=== PATIENT | female | born 1985 | race Asian ===

== ENCOUNTER → 2018-07-13 10:34 | Outpatient (CLI) | payer OTHER, SELFPAY | PROVIDERS: PCP Internal Medicine; Visit Provider Obstetrics & Gynecology Reproductive Endocrinology | DX: Z32.00 Encounter for pregnancy test, result unknown (principal) | CPT/HCPCS: 36415; 84702 ==

== ENCOUNTER → 2018-07-15 09:29 | Outpatient (CLI) | payer OTHER, SELFPAY | PROVIDERS: PCP Internal Medicine; Visit Provider Obstetrics & Gynecology Reproductive Endocrinology | DX: Z32.01 Encounter for pregnancy test, result positive (principal) | CPT/HCPCS: 36415; 84702 ==

== ENCOUNTER → 2018-08-17 10:35 | Outpatient (CLI) | payer OTHER, SELFPAY ==
[2018-08-17 11:06] LABS: Add Manual Diff / Slide Review NO; Basophils Percent Auto 0.5 % (0-2); Eosinophils Percent Auto 1.5 % (2-4); Hematocrit 39.8 % (36-46); Hemoglobin 13.5 g/dL (12.0-16.0); Mean Corpuscular Hemoglobin 29.8 PG (26-34); Mean Corpuscular Volume 87.5 fL (80-100); Monocytes Percent Auto 3.9 % (3-14); Neutrophils Absolute Auto 6400 /uL (3000-5900); Neutrophils Percent Auto 73.1 % (50-75); Platelet Count 331 X10^3/uL (150-400); Red Blood Cell Count 4.55 X10^6/uL (4.0-5.2); White Blood Cell Count 8.8 X10^3/uL (4.5-11.0)
[2018-08-17 11:16] LABS: Appearance Urine UA CLEAR; Bilirubin Urine UA NEGATIVE (NEGATIVE); Color Urine UA YELLOW; Glucose Urine UA NEGATIVE (Normal); Ketones Urine UA NEGATIVE (NEGATIVE); Leukocyte Esterase Urine UA NEGATIVE (NEGATIVE); Nitrite Urine UA POSITIVE (Negative); Occult Blood Urine UA NEGATIVE (Negative); Protein Urine UA NEGATIVE (Negative); Specific Gravity Urine UA 1.015 (1.000-1.035); Urobilinogen Urine UA 0.2 E.U./dL (0.2)
[2018-08-17 11:22] LABS: Bacteria Urine None Seen; RBC Urine None Seen (0-5/HPF); WBC Urine None Seen (0-5/HPF)
[2018-08-17 12:07] LABS: Hepatitis B Surface Antigen NEGATIVE s/c (NEGATIVE); Rubella Antibody IgG 53.5 IU/mL (>15)
[2018-08-17 12:24] LABS: HIV 1 and 2 Antibody NEGATIVE (NEGATIVE); Hep C Virus Ab w/Reflex Quant NEGATIVE s/c (NEGATIVE)
[2018-08-18 14:23] LABS: HSV 2 IGG AB 4.86 index (< 0.90); HSV1IGG < 0.90 index (< 0.90)
[2018-08-18 15:51] LABS: RPR Screen Nonreactive (Nonreactive)
== END ==
PROVIDERS: Family Provider Internal Medicine; PCP Internal Medicine; Visit Provider Obstetrics & Gynecology
DX: Z34.81 Encounter for supervision of other normal pregnancy, first trimester (principal); Z3A.01 Less than 8 weeks gestation of pregnancy
CPT/HCPCS: 36415; 80055; 81003; 81015; 86695; 86696; 86703; 86787; 86803; 86850; 86900; 86901; 87077; 87086; 87186

== ENCOUNTER → 2018-09-23 17:09 | Outpatient (CLI) | payer OTHER, SELFPAY | PROVIDERS: Family Provider Internal Medicine; PCP Internal Medicine; Visit Provider Obstetrics & Gynecology | DX: Z34.82 Encounter for supervision of other normal pregnancy, second trimester (principal) | CPT/HCPCS: 87077; 87086; 87186 ==

== ENCOUNTER → 2018-10-07 08:57 | Outpatient (CLI) | payer OTHER, SELFPAY ==
[2018-10-07 09:00] LABS: RBC Urine None Seen (0-5/HPF); WBC Urine None Seen (0-5/HPF)
[2018-10-07 11:07] LABS: Appearance Urine UA CLOUDY; Bilirubin Urine UA NEGATIVE (NEGATIVE); Color Urine UA YELLOW; Glucose Urine UA NEGATIVE (Normal); Ketones Urine UA TRACE (NEGATIVE); Leukocyte Esterase Urine UA NEGATIVE (NEGATIVE); Nitrite Urine UA NEGATIVE (Negative); Occult Blood Urine UA NEGATIVE (Negative); Protein Urine UA NEGATIVE (Negative); Specific Gravity Urine UA 1.015 (1.000-1.035); Urobilinogen Urine UA 0.2 E.U./dL (0.2)
[2018-10-07 11:34] LABS: Bacteria Urine Many (>30); Culture Indicated Urine Specimen Cultured; Squamous Epithelial Cell Urine 0-1 /HPF
== END ==
PROVIDERS: Family Provider Internal Medicine; PCP Internal Medicine; Visit Provider Obstetrics & Gynecology
DX: R39.9 Unspecified symptoms and signs involving the genitourinary system (principal)
CPT/HCPCS: 81001; 87077; 87086; 87186

== ENCOUNTER → 2018-10-16 09:08 | Outpatient (CLI) | payer OTHER, SELFPAY ==
[2018-10-16 09:12] LABS: Bacteria Urine None Seen; RBC Urine None Seen (0-5/HPF); WBC Urine None Seen (0-5/HPF)
[2018-10-16 10:15] LABS: Appearance Urine UA CLEAR; Bilirubin Urine UA NEGATIVE (NEGATIVE); Color Urine UA YELLOW; Glucose Urine UA NEGATIVE (Normal); Ketones Urine UA NEGATIVE (NEGATIVE); Leukocyte Esterase Urine UA NEGATIVE (NEGATIVE); Nitrite Urine UA NEGATIVE (Negative); Occult Blood Urine UA NEGATIVE (Negative); Protein Urine UA NEGATIVE (Negative); Specific Gravity Urine UA 1.015 (1.000-1.035); Urobilinogen Urine UA 0.2 E.U./dL (0.2)
[2018-10-16 10:23] LABS: Culture Indicated Urine Cult Not Indicated; Urine Comments Microscopic Normal
== END ==
PROVIDERS: PCP Internal Medicine; Visit Provider Obstetrics & Gynecology
DX: R30.0 Dysuria (principal); Z34.92 Encounter for supervision of normal pregnancy, unspecified, second trimester
CPT/HCPCS: 81001

== ENCOUNTER → 2018-10-22 17:31 | Outpatient (CLI) | payer OTHER, SELFPAY | PROVIDERS: Family Provider Internal Medicine; PCP Internal Medicine; Visit Provider Obstetrics & Gynecology | DX: Z34.82 Encounter for supervision of other normal pregnancy, second trimester (principal) | CPT/HCPCS: 87077; 87086; 87186 ==

== ENCOUNTER → 2018-11-13 07:05 | Outpatient (CLI) | payer OTHER, SELFPAY ==
--- NOTE | 2018-11-13 07:07 | DI.US.S_ITS ---
PROCEDURE: US OB >= 14 WEEKS FETUS INDICATIONS: ANATOMY OUTSIDE/PRIOR DATING DATA: Last menstrual period (LMP): Unknown. LMP-based estimated date of delivery (TEAGAN): Unknown. First dating scan (date and location): 08/19/18. Estimated date of delivery (TEAGAN) from first dating scan: 03/21/19. TECHNIQUE: Real-time scanning was performed of the fetus, with image documentation and biometric measurements. COMPARISON: [facility], , OB <= 14 WEEKS FETUS, 08/19/2018, 16:48. [facility], , OB >= 14 WEEKS FETUS, 10/22/2018, 16:06. FINDINGS: General: A single living intrauterine gestation is present. Presentation: Vertex. Placenta: Placental position is posterior, without previa. The inferior margin of the placenta is approximately 2.4 cm from the internal os. Amniotic fluid index: 14.1 cm, normal range is 5-24 cm. heart rate: 141 beats per minute. Maternal cervical canal: 3.5 cm long. Normal lower limit is 2.5 cm. biometrics: Biparietal diameter: 5.1 cm 21 weeks 2 days Head circumference: 19.4 cm 21 weeks 4 days Abdominal circumference: 16.9 cm 21 weeks 6 days Femur length: 3.6 cm 21 weeks 2 days Estimated gestational age from initial scan: 21 weeks 5 days Composite gestational age from present scan: 21 weeks 4 days Estimated weight and percentile: 437g 38% Measurement variability for biometric dating: +/- 7 days from 14 weeks to 15 weeks 6 days gestation, +/- 10 days from 16 weeks to 21 weeks 6 days gestation, +/- 2 weeks from 22 weeks to 27 weeks 6 days gestation, +/- 3 weeks for 28 weeks gestation or later. weight reference: 4500 g or EFW >90/95% is considered macrosomia or large for gestational age. EFW <10% is small for gestational age. EFW 5% or less is considered intra-uterine growth restriction. Anatomic survey: Neuro: Ventricles are non-dilated at less than 10 mm. Cisterna magna is normal at 3-11 mm. Cerebellum is normal in size and morphology. Nuchal skin fold: Normal at less than 6 mm between 14-21 weeks gestational age. Face: Nose and lips, facial profile are not well seen. Spine: No evidence for spina bifida. Heart: 4-chambered heart is present, with normal ventricular outflow tracts. Diaphragm: Diaphragm is intact. Stomach: Left-sided stomach is present. Kidneys: No hydronephrosis. Normal is less than 5 mm in 2nd trimester, less than 7 mm in 3rd trimester. Cord: 3-vessel cord has orthotopic insertion. Bladder: Normal in size. Extremities: All 4 extremities identified. IMPRESSION: 1. Single live intrauterine with ultrasound gestational age today of 21 weeks 4 days compared to 21 weeks 5 days from initial ultrasound. Ultrasound TEAGAN is unchanged at 03/21/19. 2. Facial profile is not well-visualized. Recommend followup as indicated. Dictated by: Sally James M.D. on 11/13/2018 at 11:10 Approved by: Sally James M.D. on 11/13/2018 at 11:13
== END ==
PROVIDERS: Family Provider Internal Medicine; PCP Internal Medicine; Visit Provider Obstetrics & Gynecology
DX: Z34.02 Encounter for supervision of normal first pregnancy, second trimester (principal); Z3A.21 21 weeks gestation of pregnancy
CPT/HCPCS: 76811

== ENCOUNTER 2018-11-25 12:53 | Outpatient (CLI) | payer OTHER, SELFPAY ==
--- NOTE | 2018-11-25 13:01 | DI.US.S_ITS ---
PROCEDURE: US OB TRANSVAGINAL INDICATIONS: CERVICAL LENGTH OUTSIDE/PRIOR DATING DATA: Last menstrual period (LMP): Not available. LMP-based estimated date of delivery (TEAGAN): Not available. First dating scan (date and location): 08/19/18 Estimated date of delivery (TEAGAN) from first dating scan: 03/21/[address] Muhammad. TECHNIQUE: Real-time scanning was performed of the fetus, with image documentation. Endovaginal scanning: Cervical length evaluation COMPARISON: [facility], , US OB <= 14 WEEKS FETUS, 08/19/2018, 16:48. FINDINGS: A single living intrauterine gestation is present. Presentation: Breech. Placenta: Placental position is posterior, without previa. Amniotic fluid index: 12.6 cm, normal range is 5-24 cm. heart rate: 125 beats per minute. Maternal cervical canal: 3.9 cm long. Normal lower limit is 2.5 cm. Estimated gestational age from initial scan: 23 weeks 3 days. IMPRESSION: 3.9 cm maternal cervical canal length. Breech presentation. The delivery is projected to be centered on 03/21/19, plus or -5 days, based on the first OB ultrasound performed by Dr. Muhammad. Dictated by: Derek Merlos M.D. on 11/25/2018 at 13:48 Approved by: Derek Merlos M.D. on 11/25/2018 at 13:59
== END 2018-11-25 14:25 | disposition home or self-care (01) ==
LOC: LABOR 13:18 → OB 11-27 11:02
PROVIDERS: Family Provider Internal Medicine; PCP Internal Medicine; Visit Provider Obstetrics & Gynecology
DX: O09.292 Supervision of pregnancy with other poor reproductive or obstetric history, second trimester (principal); Z3A.23 23 weeks gestation of pregnancy
CPT/HCPCS: 59025; 59050; 76817; G0378; G0379

== ENCOUNTER → 2018-11-27 13:20 | Outpatient (CLI) | payer OTHER, SELFPAY ==
[2018-11-27 14:15] LABS: Fetal Fibronectin Negative
== END ==
PROVIDERS: Family Provider Internal Medicine; PCP Internal Medicine; Visit Provider Obstetrics & Gynecology
DX: O47.02 False labor before 37 completed weeks of gestation, second trimester (principal)
CPT/HCPCS: 82731

== ENCOUNTER → 2018-12-18 11:21 | Outpatient (CLI) | payer OTHER, SELFPAY ==
[2018-12-18 13:34] LABS: GTT (PREG) 1 Hour PP 50gm Dose 112 mg/dL (76-139)
[2018-12-18 13:55] LABS: Hematocrit 36.5 % (36-46); Hemoglobin 12.3 g/dL (12.0-16.0)
== END ==
PROVIDERS: PCP Internal Medicine; Visit Provider Obstetrics & Gynecology
DX: Z34.82 Encounter for supervision of other normal pregnancy, second trimester (principal)
CPT/HCPCS: 36415; 82950; 85014; 85018

== ENCOUNTER → 2018-12-28 15:06 | Outpatient (CLI) | payer OTHER, SELFPAY ==
[2018-12-28 16:28] LABS: Fetal Fibronectin Negative
== END ==
PROVIDERS: PCP Internal Medicine; Visit Provider Obstetrics & Gynecology
DX: O47.9 False labor, unspecified (principal); Z3A.28 28 weeks gestation of pregnancy
CPT/HCPCS: 82731; 87077; 87086; 87186

== ENCOUNTER 2019-01-18 14:31 | Outpatient (CLI) | payer OTHER, SELFPAY | END 2019-01-18 15:30 | disposition home or self-care (01) | LOC: LABOR 14:56 → OB 01-19 14:18 | PROVIDERS: PCP Internal Medicine; Visit Provider Obstetrics & Gynecology | DX: Z34.03 Encounter for supervision of normal first pregnancy, third trimester (principal); Z3A.31 31 weeks gestation of pregnancy | CPT/HCPCS: 59025; G0378; G0379 ==

== ENCOUNTER 2019-01-25 11:00 | Outpatient (CLI) | payer OTHER, SELFPAY ==
--- NOTE | 2019-01-25 18:42 | PM.OBTRLD ---
Visit Information Visit Information Date of evaluation: 01/25/19 Primary OB Provider: Vi Muhammad On-call OB Provider: Vi Muhammad Reason for Evaluation: Yes non-stress test Comments/Additional reasons for admission: History of demise [facility] Medical History Herpes (Resolved ~2009) Surgical History Anesthesia (Resolved) History of tonsillectomy (Resolved 2003) Status post appendectomy (Resolved 1998) Social History Smoking Status: Never smoker Social History Smoking Status: Never smoker Evaluation Evaluation Baseline heart rate: 140 Variability: Moderate (11-25) monitor accelerations: Present monitor decelerations: Absent Category of Tracing: I Diagnosis, Plan/Disposition Final Diagnosis (1) 32 weeks gestation of : Current Visit: No Status: Acute Plan/Disposition Plan: Assessment: 33-year-old 2 para 1 at 32 weeks gestation with a history of a full-term intrauterine demise Reassuring, category 1 nonstress test Plan: Discharge to home kick counts Follow-up as scheduled for her routine OB visit OB Disposition: home
--- NOTE | 2019-01-25 18:45 | P.TNLD_ITS ---
Visit Information Visit Information Date of evaluation: 01/25/19 Primary OB Provider: Vi Muhammad On-call OB Provider: Vi Muhammad Reason for Evaluation: Yes non-stress test Comments/Additional reasons for admission: History of demise [facility] Medical History Herpes (Resolved ~2009) Surgical History Anesthesia (Resolved) History of tonsillectomy (Resolved 2003) Status post appendectomy (Resolved 1998) Social History Smoking Status: Never smoker Social History Smoking Status: Never smoker Evaluation Evaluation Baseline heart rate: 140 Variability: Moderate (11-25) monitor accelerations: Present monitor decelerations: Absent Category of Tracing: I Diagnosis, Plan/Disposition Final Diagnosis (1) 32 weeks gestation of : Current Visit: No Status: Acute Plan/Disposition Plan: Assessment: 33-year-old 2 para 1 at 32 weeks gestation with a history of a full-term intrauterine demise Reassuring, category 1 nonstress test Plan: Discharge to home kick counts Follow-up as scheduled for her routine OB visit OB Disposition: home
== END 2019-01-25 11:50 | disposition home or self-care (01) ==
LOC: LABOR 11:29 → OB 01-26 11:16
PROVIDERS: PCP Internal Medicine; Visit Provider Obstetrics & Gynecology
DX: O09.293 Supervision of pregnancy with other poor reproductive or obstetric history, third trimester (principal); Z3A.32 32 weeks gestation of pregnancy
CPT/HCPCS: 59025; G0378; G0379

== ENCOUNTER 2019-02-01 13:56 | Outpatient (CLI) | payer OTHER, SELFPAY ==
--- NOTE | 2019-02-01 14:29 | PM.OBTRLD ---
Visit Information Visit Information Date of evaluation: 02/01/19 Primary OB Provider: Vi Muhammad On-call OB Provider: Juliette Hope Reason for Evaluation: Yes non-stress test non-stress test reason: other (H/o demise) Vital Signs Vital Signs: BP 118/80 Heart rate 80 PFSH Medical History (Updated 02/01/19 @ 14:32 by Juliette Hope, DO) Herpes (Resolved ~2009) Surgical History (Updated 08/14/18 @ 15:37 by Alida Phillip) Anesthesia (Resolved) History of tonsillectomy (Resolved 2003) Status post appendectomy (Resolved 1998) Social History Smoking Status: Never smoker Social History Smoking Status: Never smoker Evaluation Evaluation Baseline heart rate: 130 Variability: Moderate (11-25) monitor accelerations: Present monitor decelerations: Absent Diagnosis, Plan/Disposition Final Diagnosis (1) Prior with demise: Current Visit: No Status: Chronic (2) 33 weeks gestation of : Current Visit: Yes Status: Acute Plan/Disposition Plan: 33-year-old at 33 weeks gestation with a history of a full-term intrauterine demise. Scheduled NST reassuring. Follow up as scheduled with Dr. Muhammad. OB Disposition: home
--- NOTE | 2019-02-01 14:34 | P.TNLD_ITS ---
Visit Information Visit Information Date of evaluation: 02/01/19 Primary OB Provider: Vi Muhammad On-call OB Provider: Juliette Hope Reason for Evaluation: Yes non-stress test non-stress test reason: other (H/o demise) Vital Signs Vital Signs: BP 118/80 Heart rate 80 PFSH Medical History (Updated 02/01/19 @ 14:32 by Juliette Hope, DO) Herpes (Resolved ~2009) Surgical History (Updated 08/14/18 @ 15:37 by Alida Phillip) Anesthesia (Resolved) History of tonsillectomy (Resolved 2003) Status post appendectomy (Resolved 1998) Social History Smoking Status: Never smoker Social History Smoking Status: Never smoker Evaluation Evaluation Baseline heart rate: 130 Variability: Moderate (11-25) monitor accelerations: Present monitor decelerations: Absent Diagnosis, Plan/Disposition Final Diagnosis (1) Prior with demise: Current Visit: No Status: Chronic (2) 33 weeks gestation of : Current Visit: Yes Status: Acute Plan/Disposition Plan: 33-year-old at 33 weeks gestation with a history of a full-term int rauterine demise. Scheduled NST reassuring. Follow up as scheduled with Dr. Muhammad. OB Disposition: home
== END 2019-02-01 14:39 | disposition home or self-care (01) ==
LOC: LABOR 14:18 → OB 02-02 14:11
PROVIDERS: PCP Internal Medicine; Visit Provider Family Medicine
DX: O09.293 Supervision of pregnancy with other poor reproductive or obstetric history, third trimester (principal); Z3A.33 33 weeks gestation of pregnancy
CPT/HCPCS: 59025; G0378; G0379

== ENCOUNTER 2019-02-09 10:52 | Outpatient (CLI) | payer OTHER, SELFPAY ==
--- NOTE | 2019-02-09 18:17 | P.TNLD_ITS ---
Visit Information Visit Information Date of evaluation: 02/09/19 Primary OB Provider: Vi Muhammad Reason for Evaluation: Yes non-stress test non-stress test reason: other (Unexplained demise) [facility] Medical History (Updated 02/09/19 @ 18:17 by Vi Muhammad MD) Herpes (Resolved ~2009) Surgical History (Updated 08/14/18 @ 15:37 by Alida Phillip) Anesthesia (Resolved) History of tonsillectomy (Resolved 2003) Status post appendectomy (Resolved 1998) Social History Smoking Status: Never smoker Social History Smoking Status: Never smoker Evaluation Evaluation Baseline heart rate: 125 Variability: Moderate (11-25) monitor accelerations: Present monitor decelerations: Absent Category of Tracing: I Diagnosis, Plan/Disposition Final Diagnosis (1) 34 weeks gestation of : Current Visit: No Status: Acute (2) Prior with demise: Current Visit: No Status: Chronic Plan/Disposition Plan: Discharge to home [facility] Follow up 1 week OB Disposition: home
== END 2019-02-09 11:47 | disposition home or self-care (01) ==
LOC: LABOR 11:42 → OB 02-10 13:54
PROVIDERS: PCP Internal Medicine; Visit Provider Obstetrics & Gynecology
DX: O31.20X0 Continuing pregnancy after intrauterine death of one fetus or more, unspecified trimester, not applicable or unspecified (principal); Z3A.34 34 weeks gestation of pregnancy
CPT/HCPCS: 59025; G0378; G0379

== ENCOUNTER 2019-02-15 11:57 | Outpatient (CLI) | payer OTHER, SELFPAY | END 2019-02-15 12:57 | disposition home or self-care (01) | LOC: LABOR 13:09 → OB 03-05 13:05 | PROVIDERS: PCP Internal Medicine; Visit Provider Obstetrics & Gynecology | DX: O47.9 False labor, unspecified (principal); Z3A.36 36 weeks gestation of pregnancy | CPT/HCPCS: 59025; G0378; G0379 ==

== ENCOUNTER 2019-02-16 10:31 | Observation (INO) | payer OTHER, SELFPAY ==
[2019-02-16] MEDS: NIFEdipine 10 MG CAPSULE PO ×4 (11:51→13:04)
== END 2019-02-16 13:55 | disposition home or self-care (01) ==
LOC: LABOR 10:32
PROVIDERS: Admitting Provider Obstetrics & Gynecology; PCP Internal Medicine; Visit Provider Obstetrics & Gynecology
DX: O36.8130 Decreased fetal movements, third trimester, not applicable or unspecified (principal); Z3A.36 36 weeks gestation of pregnancy
CPT/HCPCS: 59025; 59050; G0378; G0379

== ENCOUNTER 2019-02-23 11:38 | Observation (INO) | payer OTHER, SELFPAY ==
--- NOTE | 2019-02-23 18:21 | PM.OBTRLD ---
Visit Information Visit Information Date of evaluation: 02/23/19 Primary OB Provider: Vi Muhammad Reason for Evaluation: Yes non-stress test non-stress test reason: other (history of IUFD) [facility] Medical History (Updated 02/23/19 @ 18:24 by Vi Muhammad MD) Herpes (Resolved ~2009) Surgical History (Updated 08/14/18 @ 15:37 by Alida Phillip) Anesthesia (Resolved) History of tonsillectomy (Resolved 2003) Status post appendectomy (Resolved 1998) Social History Smoking Status: Never smoker Social History Smoking Status: Never smoker Evaluation Evaluation Baseline heart rate: 140 Variability: Moderate (11-25) monitor accelerations: Present monitor decelerations: Absent Uterine Contraction Intensity: Mild Category of Tracing: I Diagnosis, Plan/Disposition Final Diagnosis (1) 37 weeks gestation of : Current Visit: Yes Status: Acute (2) Prior with demise: Current Visit: Yes Status: Acute Plan/Disposition Plan: Assessment: 33-year-old 2 para 1000 at 37-,1/7 weeks gestation with a history of a previous intrauterine demise Category 1 nonstress test Plan: Discharged home kick counts Follow-up 1 week OB Disposition: home
--- NOTE | 2019-02-23 18:25 | P.TNLD_ITS ---
Visit Information Visit Information Date of evaluation: 02/23/19 Primary OB Provider: Vi Muhammad Reason for Evaluation: Yes non-stress test non-stress test reason: other (history of IUFD) [facility] Medical History (Updated 02/23/19 @ 18:24 by Vi Muhammad MD) Herpes (Resolved ~2009) Surgical History (Updated 08/14/18 @ 15:37 by Alida Phillip) Anesthesia (Resolved) History of tonsillectomy (Resolved 2003) Status post appendectomy (Resolved 1998) Social History Smoking Status: Never smoker Social History Smoking Status: Never smoker Evaluation Evaluation Baseline heart rate: 140 Variability: Moderate (11-25) monitor accelerations: Present monitor decelerations: Absent Uterine Contraction Intensity: Mild Category of Tracing: I Diagnosis, Plan/Disposition Final Diagnosis (1) 37 weeks gestation of : Current Visit: Yes Status: Acute (2) Prior with demise: Current Visit: Yes Status: Acute Plan/Disposition Plan: Assessment: 33-year-old 2 para 1000 at 37-,1/7 weeks gestation with a history of a previous intrauterine demise Category 1 nonstress test Plan: Discharged home kick counts Follow-up 1 week OB Disposition: home
--- NOTE | 2019-02-23 18:26 | PM.OBTRLD ---
Visit Information Visit Information Date of evaluation: 02/23/19 Primary OB Provider: Vi Muhammad Reason for Evaluation: Yes pre-term labor [facility] Medical History (Updated 02/23/19 @ 18:30 by Vi Muhammad MD) Herpes (Resolved ~2009) Surgical History (Updated 08/14/18 @ 15:37 by Alida Phillip) Anesthesia (Resolved) History of tonsillectomy (Resolved 2003) Status post appendectomy (Resolved 1998) Social History Smoking Status: Never smoker Social History Smoking Status: Never smoker Evaluation Evaluation Baseline heart rate: 120 Variability: Moderate (11-25) monitor accelerations: Present monitor decelerations: Variable Contraction Frequency (minutes): 8 Uterine Contraction Intensity: Mild Category of Tracing: I Cervical dilation (cm): 1 Cervical effacement (%): 75 station: -1 Diagnosis, Plan/Disposition Final Diagnosis (1) 36 weeks gestation of : Current Visit: Yes Status: Acute (2) contractions: Current Visit: Yes Status: Acute Plan/Disposition Plan: Assessment: 33-year-old 2 para 1000 at 36 weeks gestation with contractions Plan: Discharged home Nifedipine 30 mg XL b.i.d. Nifedipine 10 mg immediate release as necessary x2 Follow-up in 1 week Signs and symptoms of labor review OB Disposition: home
== END 2019-02-23 12:05 | disposition home or self-care (01) ==
PROVIDERS: Admitting Provider Obstetrics & Gynecology; PCP Internal Medicine; Visit Provider Obstetrics & Gynecology
DX: O09.299 Supervision of pregnancy with other poor reproductive or obstetric history, unspecified trimester (principal); Z3A.37 37 weeks gestation of pregnancy; O47.9 False labor, unspecified
CPT/HCPCS: 59025; G0378; G0379

== ENCOUNTER → 2019-02-23 13:50 | Outpatient (CLI) | payer OTHER, SELFPAY ==
[2019-02-24 11:26] LABS: Strep Grp B PCR NEG for Grp B Strep
== END ==
PROVIDERS: PCP Internal Medicine; Visit Provider Obstetrics & Gynecology
DX: Z34.03 Encounter for supervision of normal first pregnancy, third trimester (principal)
CPT/HCPCS: 87653

== ENCOUNTER 2019-02-23 14:42 | Outpatient (CLI) | payer OTHER, SELFPAY ==
[2019-02-23] MEDS: NIFEdipine 10 MG CAPSULE PO ×4 (15:00→16:00)
== END 2019-02-23 16:20 | disposition home or self-care (01) ==
LOC: LABOR 15:59 → OB 02-25 10:49
PROVIDERS: PCP Internal Medicine; Visit Provider Obstetrics & Gynecology
DX: O09.299 Supervision of pregnancy with other poor reproductive or obstetric history, unspecified trimester (principal); O47.03 False labor before 37 completed weeks of gestation, third trimester; Z3A.37 37 weeks gestation of pregnancy
CPT/HCPCS: 59025; 59050; 87653; G0378; G0379

== ENCOUNTER 2019-03-02 10:01 | Outpatient (CLI) | payer OTHER, SELFPAY | END 2019-03-02 10:51 | disposition home or self-care (01) | LOC: LABOR 10:09 → OB 03-03 12:52 | PROVIDERS: PCP Internal Medicine; Visit Provider Obstetrics & Gynecology | DX: Z34.83 Encounter for supervision of other normal pregnancy, third trimester (principal); Z3A.38 38 weeks gestation of pregnancy | CPT/HCPCS: 59025; G0378; G0379 ==

== ENCOUNTER 2019-03-09 07:57 | Outpatient (CLI) | payer OTHER, SELFPAY ==
--- NOTE | 2019-03-09 08:52 | P.TNLD_ITS ---
[facility] Medical History (Updated 03/09/19 @ 08:51 by Vi Muhammad MD) Herpes (Resolved ~2009) Surgical History (Updated 08/14/18 @ 15:37 by Alida Phillip) Anesthesia (Resolved) History of tonsillectomy (Resolved 2003) Status post appendectomy (Resolved 1998) Social History Smoking Status: Never smoker Social History Smoking Status: Never smoker Evaluation Evaluation Baseline heart rate: 120 Variability: Moderate (11-25) monitor accelerations: Present monitor decelerations: Absent Contraction Frequency (minutes): 8 Uterine Contraction Intensity: Mild Category of Tracing: I Diagnosis, Plan/Disposition Final Diagnosis (1) 38 weeks gestation of : Current Visit: Yes Status: Acute (2) Prior with demise: Current Visit: Yes Status: Acute Plan/Disposition Plan: Assessment: at 38 weeks with history of demise at term Category 1 tracing Plan: F/U 1 week repeat NST [facility] OB Disposition: home
--- NOTE | 2019-03-11 15:00 | PM.OBTRLD ---
Visit Information Visit Information Date of evaluation: 03/09/19 Primary OB Provider: Vi Muhammad Reason for Evaluation: Yes non-stress test non-stress test reason: other (h/o demise) [facility] Medical History (Updated 03/09/19 @ 08:51 by Vi Muhammad MD) Herpes (Resolved ~2009) Surgical History (Updated 08/14/18 @ 15:37 by Alida Phillip) Anesthesia (Resolved) History of tonsillectomy (Resolved 2003) Status post appendectomy (Resolved 1998) Social History Smoking Status: Never smoker Social History Smoking Status: Never smoker Evaluation Evaluation Baseline heart rate: 120 Variability: Moderate (11-25) monitor accelerations: Present monitor decelerations: Absent Contraction Frequency (minutes): 8 Uterine Contraction Intensity: Mild Category of Tracing: I Diagnosis, Plan/Disposition Final Diagnosis (1) 38 weeks gestation of : Current Visit: No Status: Acute (2) Prior with demise: Current Visit: No Status: Acute Plan/Disposition Plan: D/C to home [facility] F/U as scheduled OB Disposition: home
--- NOTE | 2019-03-11 15:03 | P.TNLD_ITS ---
Visit Information Visit Information Date of evaluation: 03/09/19 Primary OB Provider: Vi Muhammad Reason for Evaluation: Yes non-stress test non-stress test reason: other (h/o demise) [facility] Medical History (Updated 03/09/19 @ 08:51 by Vi Muhammad MD) Herpes (Resolved ~2009) Surgical History (Updated 08/14/18 @ 15:37 by Alida Phillip) Anesthesia (Resolved) History of tonsillectomy (Resolved 2003) Status post appendectomy (Resolved 1998) Social History Smoking Status: Never smoker Social History Smoking Status: Never smoker Evaluation Evaluation Baseline heart rate: 120 Variability: Moderate (11-25) monitor accelerations: Present monitor decelerations: Absent Contraction Frequency (minutes): 8 Uterine Contraction Intensity: Mild Category of Tracing: I Diagnosis, Plan/Disposition Final Diagnosis (1) 38 weeks gestation of : Current Visit: No Status: Acute (2) Prior with demise: Current Visit: No Status: Acute Plan/Disposition Plan: D/C to home [facility] F/U as scheduled OB Disposition: home
== END 2019-03-09 08:50 | disposition home or self-care (01) ==
LOC: LABOR 10:19 → OB 16:39
PROVIDERS: PCP Internal Medicine; Visit Provider Obstetrics & Gynecology
DX: O09.299 Supervision of pregnancy with other poor reproductive or obstetric history, unspecified trimester (principal); Z3A.38 38 weeks gestation of pregnancy
CPT/HCPCS: 59025; G0378; G0379

== ENCOUNTER 2019-03-13 02:50 | Inpatient (IN) | payer OTHER, SELFPAY ==
[2019-03-13 03:28] LABS: Add Manual Diff / Slide Review NO; Basophils Absolute Auto 100 /uL (0-100); Basophils Percent Auto 0.5 % (0-2); Eosinophils Absolute Auto 100 /uL (0-450); Eosinophils Percent Auto 0.7 % (2-4); Hematocrit 37.7 % (36-46); Hemoglobin 12.6 g/dL (12.0-16.0); Lymphocytes Absolute Auto 2200 /uL (1100-4500); Mean Corpuscular HGB Conc 33.5 % (30-36); Mean Corpuscular Hemoglobin 30.1 PG (26-34); Mean Corpuscular Volume 89.8 fL (80-100); Monocytes Absolute Auto 600 /uL (0-900); Monocytes Percent Auto 4.6 % (3-14); Neutrophils Absolute Auto 9400 /uL (1500-7000); Neutrophils Percent Auto 76.2 % (50-75); Platelet Count 232 X10^3/uL (150-400); Red Cell Distribution Width 13.9 % (11.6-14.8); White Blood Cell Count 12.3 X10^3/uL (4.5-11.0)
--- NOTE | 2019-03-13 03:31 | PM.OBHP.1 ---
OB HPI Date/Time Date of admission: 03/13/19 Date Patient Seen: 03/13/19 Time Patient Seen: 03:31 History of Present Condition Chief complaint: evaluation of labor : 2 Para: 1 Estimated Date of Delivery: 03/22/19 Estimated Gestational Age (weeks): 38 Narrative: Darby Monte is a 33 year old female admitted in active labor History of Present care: good care, initiated at week # (9), number of visits (10) and pounds weight gain (28) Dating criteria: LMP confirmed by 1st trimester US Ultrasounds: normal mid trimester US Obstetrical complications: none Medical complications: none Preadmission Labs Blood type: A (+) positive -: Antibody screen: negative, GBS status: negative, HBsAG: negative, HIV: negative, HSV 2: positive and RPR/VDLR: negative -: Chlamydia screen: not detected and Gonorrhea screen: not detected -: Rubella: immune and Varicella: immune HCAB: negative Quad screen: Normal 1 hr GTT: 112 Prior (ies) History: 09/2008 39 week stillborn vaginal delivery Evaluation Evaluation Baseline heart rate: 120 Variability: Moderate (11-25) monitor accelerations: Present monitor decelerations: Absent Contraction Frequency (minutes): 3 Uterine Contraction Intensity: Strong/Firm Category of Tracing: I Cervical dilation (cm): 8 Cervical effacement (%): 100 Laboratory results: Laboratory Tests 03/13/19 03:15 WBC 12.3 H RBC 4.20 Hgb 12.6 Hct 37.7 MCV 89.8 MCH 30.1 MCHC 33.5 RDW 13.9 Plt Count 232 Neut % (Auto) 76.2 H Lymph % (Auto) 18.[address] [place] % (Auto) 4.6 Eos % (Auto) 0.7 L Baso % (Auto) 0.5 Neut # (Auto) 9400 H Lymph # (Auto) 2200 [place] # (Auto) 600 Eos # (Auto) 100 Baso # (Auto) 100 PFSH Medical History (Updated 03/09/19 @ 08:51 by Vi Muhammad MD) Herpes (Resolved ~2009) Surgical History (Updated 08/14/18 @ 15:37 by Alida Phillip) Anesthesia (Resolved) History of tonsillectomy (Resolved 2003) Status post appendectomy (Resolved 1998) Social History Smoking Status: Never smoker Social History Smoking Status: Never smoker Meds Home Medications Medication Instructions Recorded Confirmed Type valacyclovir 500 mg PO BID #60 tab 10/22/17 04/13/18 Rx Allergies Allergy/AdvReac Type Severity Reaction Status Date / Time No Known Drug Allergies Allergy Verified 08/17/18 10:35 Review of Systems Review of Systems Patient denies signs or symptoms of preeclampsia. No signs of herpes. No leakage of fluid. Irregular contractions for the last several days. Good movement. All systems reviewed & are unremarkable except as noted in HPI and below Exam Vital Signs (past 8 hours): Blood pressure 127/87, pulse of 83, Narrative Exam Narrative: HEENT exam within normal limits. Lungs are clear to auscultation and percussion. Heart is regular rate and rhythm no S3-S4 or murmurs. Abdomen is gravid. Extremities without edema and nontender Objective Labs Result Diagrams: 03/13/19 03:15 Labs: Laboratory Results - last 24 hr 03/13/19 03:15 WBC 12.3 H RBC 4.20 Hgb 12.6 Hct 37.7 MCV 89.8 MCH 30.1 MCHC 33.5 RDW 13.9 Plt Count 232 Neut % (Auto) 76.2 H Lymph % (Auto) 18.[address] [place] % (Auto) 4.6 Eos % (Auto) 0.7 L Baso % (Auto) 0.5 Neut # (Auto) 9400 H Lymph # (Auto) 2200 [place] # (Auto) 600 Eos # (Auto) 100 Baso # (Auto) 100 Assessment and Plan Assessment and Plan Assessment and Plan narrative: 38 week gestation in active labor. Anticipate vaginal delivery. Patient is requesting epidural. Time Spent with Patient Total time spent with greater than 50% in coordination of care (as documented) at patient's floor/unit and/or counseling patient:: less than 15 minutes
--- NOTE | 2019-03-13 08:52 | PM.OBPRVD ---
Delivery date: 03/13/19 Intrapartal events: None Cervical ripening method: none Induction method: none Delivery monitor: external FHT and external uterine Route of delivery: L&D Laceration Description: None Estimated blood loss (mL): 250 Anesthesia type: Epidural Narrative: Patient arrived on Labor and delivery in active labor. She received an epidural for pain control. heart tones were category 1 to category 2 throughout labor. She delivered spontaneously, over an intact perineum. The viable male infant was placed on the maternal abdomen. After the cord stopped pulsating the cord was clamped, cut, and cord bloods obtained. The placenta delivered spontaneously, intact, with 3 vessels. There were no cervical, vaginal, or perineal tears. Both infant and mother did well . Baby 1: gender: Male Presentation: vertex position: Right Occiput Anterior Placenta delivery description: Spontaneous cord vessel description: 3 Vessels score (1 min): 8 score (5 min): 9 Plan for aftercare: Routine care
[2019-03-13] MEDS: miSOPROStol 200 MCG TABLET 800 MCG PR (10:10)
--- NOTE | 2019-03-13 10:24 | P.PNOB_ITS ---
Subjective - OB Narrative: Called to patient's room after a sycopal episode while trying to ambulate to the bathroom. Patient was awake and answering questions but stated she was very tired. Nursing reported heavier bleeding than expected since delivery without clots (two full pads since delivery). No lacerations or complications with delivery. Exam Vital Signs (past 8 hours): BP 108/6 HR 77 Narrative Exam Narrative: General: Awake, alert and appropriate Abd: Fundus firm 1 cm below umbilicus : No vaginal or perineal lacerations Ext: No edema Objective Labs Result Diagrams: 03/13/19 03:15 Labs: Laboratory Results - last 24 hr 03/13/19 03/13/19 03:15 03:15 WBC 12.3 H RBC 4.20 Hgb 12.6 Hct 37.7 MCV 89.8 MCH 30.1 MCHC 33.5 RDW 13.9 Plt Count 232 Neut % (Auto) 76.2 H Lymph % (Auto) 18.0 L [place] % (Auto) 4.6 Eos % (Auto) 0.7 L Baso % (Auto) 0.5 Neut # (Auto) 9400 H Lymph # (Auto) 2200 [place] # (Auto) 600 Eos # (Auto) 100 Baso # (Auto) 100 Blood Type A Positive Antibody Screen Negative Assessment & Plan Plan Comments: 33 year old [id number] 1.5 hours after uncomplicated . Patient was not bleeding heavily on exam however has gone through two pads since delivery with a syncopal episode upon ambulation. Vital signs stable. Rectal misoprostol given. No further heavy bleeding. Will monitor closely. Time Spent With Patient Total time spent is greater than 50% in coordination of care (as documented) at patient's floor/unit and/or counseling patient: less than 15 minutes
[2019-03-13 11:20] VITALS: BP 127/87
[2019-03-13] MEDS: IBUPROFEN 600 MG TABLET PO ×2 (11:54→21:24)
[2019-03-13] MEDS: LANOLIN OINT 7 GM 1 APPLIC TOP (22:07)
[2019-03-13] MEDS: DERMOPLAST SPRAY 20% 60 ML 1 SPRAY TOP (22:16)
[2019-03-14] MEDS: IBUPROFEN 600 MG TABLET PO ×2 (04:13→10:24)
[2019-03-14 05:32] LABS: Hematocrit 26.6 % (36-46); Hemoglobin 8.8 g/dL (12.0-16.0)
[2019-03-14] MEDS: LANOLIN OINT 7 GM 1 APPLIC TOP (10:25)
[2019-03-14 10:36] VITALS: BP 127/87; PULSE 77; RESP 16; TEMP 36.7
--- NOTE | 2019-03-14 13:05 | P.DS_ITS ---
Discharge Providers Date of admission: 03/13/19 02:50 Discharge Date: 03/14/19 Primary care physician: JOSE Lee Consults: 03/13/19 03:23 Consult to Anesthesiology Urgent Comment: Consulting Provider: Anesthesiologist Reason for consultation: epidural Has provider been notified: No 03/13/19 10:51 Consult to Social Service Coordinator Routine Comment: Discharge provider: Breanne King MD Summary Date Patient Seen: 03/14/19 Time Patient Seen: 13:05 Procedures: Epidural catheter, vaginal delivery Hospital Course: Patient arrived on Labor and delivery in active labor. She received an epidural catheter for pain control. She had a spontaneous vaginal delivery. She is breast-feeding without difficulty. She is urinating and ambulatory. She denies any signs or symptoms of preeclampsia. Peripartum Data Delivery Method: Natural Vaginal Laceration description: None Procedures: Epidural catheter, vaginal delivery complications: none [place] 1: Gender: Male Disposition of : home Discharge Diagnosis (1) Vaginal delivery: Status: Acute (2) Acute blood loss anemia: Status: Acute Time Spent with Patient Total time spent providing and/or coordinating discharge services: Objective Labs Result Diagrams: 03/14/19 05:00 Labs: Laboratory Results - last 24 hr 03/14/19 05:00 Hgb 8.8 L Hct 26.6 L Exam Vital Signs (past 8 hours): -blood pressure 119/79, pulse 71, temperature 97.9? 03/14/19 10:36 Temperature 98.0 F Pulse Rate 77 Respiratory Rate 16 Blood Pressure 127/87 Narrative Exam Narrative: Patient's abdomen is soft, nontender. Uterus is firm, at U, nontender. mild lochia. Extremities without edema and nontender. Patient's blood type is A positive and she is rubella immune. Discharge Plan Discharge Plan Patient Disposition: Home Discharge Med Rec/Prescriptions Prescriptions: New bisacodyl 5 mg Tablet,Delayed Release (Dr/Ec) 10 mg PO DAILY PRN (Reason: Constipation) Qty: 20 RF: 0 ibuprofen 600 mg Tablet 600 mg PO Q6HR PRN (Reason: Pain, Mild (1-3)) Qty: 30 RF: 0 ferrous gluconate 324 mg (38 mg iron) Tablet 324 mg PO BID Qty: 60 RF: 0 Discontinued valacyclovir 500 MG tablet 500 mg PO BID Qty: 60 RF: 0 Follow up/Referrals: Breanne King MD [Physician] - (please call Dr. Overton office on Friday morning for a 6 week check-up. Please schedule a appt as well. [phone]) Vi Muhammad MD [Physician] - 6 Weeks ( exam) Annette Landeros ARNP [Primary Care Provider] - Provider Discharge Instructions Diet: Regular Activity: nothing in vagina for 6 weeks Skin/Wound/Dressing Care Report to your healthcare provider any signs of infection, such as:: chills, fever Visit Report/Discharge Packet Stand Alone Forms: Discharge: Care Discharge Data Primary Care Provider: Annette Landeros Attending Provider: Breanne Kign Admit Date/Time: 03/13/19 02:50
== END 2019-03-14 14:12 | disposition home or self-care (01) | DRG 806 ==
PROVIDERS: Admitting Provider Specialist; PCP Internal Medicine; Visit Provider Specialist
DX: O80 Encounter for full-term uncomplicated delivery (principal); D62 Acute posthemorrhagic anemia; Z37.0 Single live birth; Z3A.38 38 weeks gestation of pregnancy; R55 Syncope and collapse
CPT/HCPCS: 01967; 36415; 59050; 59400; 59409; 85014; 85018; 85025; 86850; 86900; 86901; G0379; S0191

== ENCOUNTER 2020-10-08 15:41 | Emergency (ER) | payer OTHER, SELFPAY ==
[2020-10-08] VITALS (8 sets, daily range): BP systolic 114–129; BP diastolic 64–75; PULSE 65–75; RESP 16; TEMP 37.1; O2SAT 99–100; BMI 19.8
--- NOTE | 2020-10-08 16:32 | ED_ITS ---
HPI - General Adult General Chief complaint: Dizziness Stated complaint: body camps all over, hands went numb Time Seen by Provider: 10/08/20 16:08 Source: patient and family () Mode of arrival: Ambulatory Limitations: no limitations History of Present Illness HPI narrative: This is a 35-year-old female comes to the emergency department with a complaint of cramping all over her body patient states that she had some mild cramping and tingling and then had significant cramping throughout her whole body. She states that her hands were curled up as well as her arms legs and she could not completely straighten them. She did feel nauseated. She still has some mild abdominal discomfort. Patient states she also had 1 or 2 episodes of diarrhea. She states that this lasted for about 15 or 20 minutes and then resolved. She has not had any fevers, cough cold or congestion recently. She denies any chest pain or shortness of breath. She denies any loss of bowel or bladder control. No recent urinary symptoms. She did have mastitis a couple weeks ago and finished her antibiotics about a week ago. She does not recall the name of the antibiotic but states it was 3 times daily and improved her symptoms. She denies any medical problems. She denies similar symptoms in the past. She has a 1-year-old child which she is currently . She takes a and a breast feeding supplement from [facility]. No tobacco, alcohol or illicit. Related Data Previous Rx's Medication Instructions Recorded bisacodyl 10 mg PO DAILY PRN #20 tab 03/14/19 Allergies Allergy/AdvReac Type Severity Reaction Status Date / Time No Known Drug Allergies Allergy Verified 04/28/19 10:42 Review of Systems Review of Systems ROS Unobtainable: All systems reviewed & are unremarkable except as noted in HPI and below Patient History Medical History Herpes (~2009) Surgical History Anesthesia History of tonsillectomy (2003) Status post appendectomy (1998) Social History Smoking Status: Never smoker Smoking Status: Never smoker alcohol intake frequency: 0-2 drinks per day Substance Use Type: does not use Exam Narrative Exam Narrative: GEN: well nourished, well appearing female, alert and oriented x 3, patient appears to be in mild distress. HEENT: Atraumatic, pupils are equal round reactive to light, extraocular movements are intact, nares are clear, TMs are clear with no fluid, there is no conjunctival pallor. Throat is clear without any exudates, erythema, tonsillar enlargement or uvular deviation HEART: Regular rate and rhythm without murmur, clicks, rubs. LUNGS:Lungs clear to auscultation, no wheezes, rales, crackles, chest moves symmetrically ABD:bowel sounds normal, soft, non-tender, no guarding, rebound, rigidity, no masses noted, no hepatosplenomegaly MSCL: Non-tender, no muscle atrophy, muscles strength 5/5 upper and lower extremities, full range of motion, normal gait NEURO:CN 2-12 intact, sensation normal, patient is slightly hyperreflexic in the upper extremities, 2/4 on the lower extremities bilaterally. No clonus. Patient did not have any carpopedal spasm with blood pressure check. Initial Vital Signs Initial Vital Signs: Vital Signs Temperature 98.7 F 10/08/20 16:05 Pulse Rate 75 10/08/20 16:05 Respiratory Rate 16 10/08/20 16:05 Blood Pressure 116/75 10/08/20 16:05 Pulse Oximetry 99 10/08/20 16:05 Scores GCS Hillister coma scale eye opening: Spontaneous Yolie coma scale verbal response: Orientated Hillister coma scale motor response: Obey commands Yolie coma scale total score: 15 Course Orders Ordered: ED Orders 10/08/20 16:45 Complete Blood Count AUTO DIFF Stat Comprehensive Metabolic Panel Stat Magnesium Stat Procalcitonin Stat Discontinued Medications Sodium Chloride (Normal Saline 0.9%) 1,000 mls @ 1,000 mls/hr IV BOLUS ONE Stop: 10/08/20 17:30 Last Admin: 10/08/20 16:42 Dose: 1,000 mls/hr Documented by: NADIR Vital Signs Vital signs: Vital Signs - 8 hr 10/08/20 16:05 10/08/20 16:07 10/08/20 16:16 Temperature 98.7 F Pulse Rate 75 73 72 Respiratory Rate 16 Blood Pressure 116/75 116/75 Pulse Oximetry 99 100 99 10/08/20 16:30 10/08/20 17:00 10/08/20 17:30 Temperature Pulse Rate 69 69 65 Respiratory Rate Blood Pressure Pulse Oximetry 100 100 100 10/08/20 17:51 10/08/20 18:00 Temperature Pulse Rate 75 70 Respiratory Rate Blood Pressure 129/75 114/64 Pulse Oximetry 99 99 Medical Decision Making Lab Data Lab results reviewed: Yes I reviewed the patient's lab results. Result diagrams: 10/08/20 16:45 10/08/20 16:45 Labs: Lab Results 10/08/20 10/08/20 10/08/20 Range/Units 16:45 16:45 16:45 WBC 8.6 (4.5-11.0) X10^3/uL RBC 4.41 (4.0-5.2) X10^6/uL Hgb 13.3 (12.0-16.0) g/dL Hct 40.0 (36-46) % MCV 90.5 (80-100) fL MCH 30.2 (26-34) PG MCHC 33.3 (30-36) % RDW 12.8 (11.6-14.8) % Plt Count 315 (150-400) X10^3/uL Neut % (Auto) 74.4 (50-75) % Lymph % (Auto) 20.8 L (25-40) % [place] % (Auto) 3.3 (3-14) % Eos % (Auto) 0.9 L (2-4) % Baso % (Auto) 0.6 (0-2) % Neut # (Auto) 6400 (9455-9640) /uL Lymph # (Auto) 1800 (4355-3506) /uL [place] # (Auto) 300 (0-900) /uL Eos # (Auto) 100 (0-450) /uL Baso # (Auto) 0 (0-100) /uL Sodium 136 L (137-145) mmol/L Potassium 3.5 (3.4-5.1) mmol/L Chloride 101 (98-107) mmol/L Carbon Dioxide 29 (22-32) mmol/L BUN 20 H (7-17) mg/dL Creatinine 0.64 (0.52-1.04) mg/dL Estimated GFR > 60.0 (>60) mL/min BUN/Creatinine Ratio 31.3 H (6-22) Glucose 134 H (70-100) mg/dL Calcium 9.5 (8.4-10.2) mg/dL Magnesium 2.3 (1.6-2.3) mg/dL Total Bilirubin 0.4 (0.2-1.3) mg/dL AST 25 (14-36) IU/L ALT 16 (<35) IU/L Alkaline Phosphatase 44 (38-126) U/L Total Protein 8.2 (6.3-8.2) g/dL Albumin 4.7 (3.5-5.0) g/dL Globulin 3.5 (1.7-4.1) g/dL Albumin/Globulin Ratio 1.3 (1.0-2.8) Procalcitonin < 0.05 (<0.5) ng/mL ECG Data Attestation: I personally reviewed and interpreted this ECG as follows: Prior ECG tracings: not available for review Interpretation: Sinus rhythm with sinus arrhythmia, rate of 75, IL 134, QRS is 84 and QTC of 433. Nonspecific change. MDM Narrative Medical decision making narrative: Patient comes in with complaint of cramping and tingling throughout the whole body. Nonspecific EKG changes, patient has very mild electrolyte, glucose of 134. Patient has no major abnormalities. Plan for observation at home and to continue with home hydration. Patient had a small amount of stool in her urinanalysis test was deferred. Discharge Plan Departure Patient Disposition: Home Clinical Impression: Cramps, extremity Activity Restrictions/Additional Instructions: Follow up with your physician in the next 2-3 days for recheck. Continue to drink fluids regularly. Return for fever greater than 100.4F, increased or worsening cramping, difficulty with movement, new weakness, numbness or loss of bowel or bladder control, persistent vomiting, black or bloody stools or any other new or concerning symptoms. Prescriptions: No Action bisacodyl 5 mg Tablet,Delayed Release (Dr/Ec) 10 mg PO DAILY PRN (Reason: Constipation) Qty: 20 RF: 0 Referrals: Annette Landeros ARNP [Primary Care Provider] -
[2020-10-08] MEDS: SODIUM CHLORIDE 0.9% 1,000 ML 1000 ML IV (16:42)
[2020-10-08 16:52] LABS: Add Manual Diff / Slide Review NO; Basophils Absolute Auto 0 /uL (0-100); Basophils Percent Auto 0.6 % (0-2); Eosinophils Absolute Auto 100 /uL (0-450); Eosinophils Percent Auto 0.9 % (2-4); Hemoglobin 13.3 g/dL (12.0-16.0); Lymphocytes Absolute Auto 1800 /uL (1100-4500); Lymphocytes Percent Auto 20.8 % (25-40); Mean Corpuscular HGB Conc 33.3 % (30-36); Mean Corpuscular Hemoglobin 30.2 PG (26-34); Mean Corpuscular Volume 90.5 fL (80-100); Monocytes Absolute Auto 300 /uL (0-900); Monocytes Percent Auto 3.3 % (3-14); Neutrophils Absolute Auto 6400 /uL (1500-7000); Neutrophils Percent Auto 74.4 % (50-75); Platelet Count 315 X10^3/uL (150-400); Red Blood Cell Count 4.41 X10^6/uL (4.0-5.2); Red Cell Distribution Width 12.8 % (11.6-14.8); White Blood Cell Count 8.6 X10^3/uL (4.5-11.0)
[2020-10-08 17:06] LABS: Alanine Aminotransferase 16 IU/L (<35); Albumin 4.7 g/dL (3.5-5.0); Albumin Globulin Ratio 1.3 (1.0-2.8); Alkaline Phosphatase 44 U/L (38-126); Aspartate Aminotransferase 25 IU/L (14-36); BUN Creatinine Ratio 31.3 (6-22); Bilirubin Total 0.4 mg/dL (0.2-1.3); Blood Urea Nitrogen 20 mg/dL (7-17); Calcium 9.5 mg/dL (8.4-10.2); Carbon Dioxide 29 mmol/L (22-32); Chloride 101 mmol/L (98-107); Estimated Glomerular Filt Rate > 60.0 mL/min (>60); Globulin 3.5 g/dL (1.7-4.1); Glucose 134 mg/dL (70-100); HEMOLYSIS 18 (0-50); Magnesium 2.3 mg/dL (1.6-2.3); Potassium 3.5 mmol/L (3.4-5.1); Sodium 136 mmol/L (137-145); Total Protein 8.2 g/dL (6.3-8.2)
[2020-10-08 17:47] LABS: Procalcitonin < 0.05 ng/mL (<0.5)
== END 2020-10-08 18:12 | disposition home or self-care (01) ==
PROVIDERS: Emergency Provider Emergency Medicine; PCP Internal Medicine
DX: R25.2 Cramp and spasm (principal); R42 Dizziness and giddiness; R19.7 Diarrhea, unspecified; R10.9 Unspecified abdominal pain
CPT/HCPCS: 36415; 80053; 83735; 84145; 85025; 93005; 96360; 99283; 99284

== ENCOUNTER → 2022-05-03 09:42 | Outpatient (CLI) | payer OTHER, SELFPAY ==
[2022-05-03 10:31] LABS: Add Manual Diff / Slide Review NO; Basophils Absolute Auto 0 /uL (0-100); Basophils Percent Auto 0.4 % (0-2); Eosinophils Absolute Auto 100 /uL (0-450); Eosinophils Percent Auto 1.1 % (2-4); Hematocrit 36.8 % (36-46); Hemoglobin 12.8 g/dL (12.0-16.0); Lymphocytes Absolute Auto 1700 /uL (1100-4500); Lymphocytes Percent Auto 21.5 % (25-40); Mean Corpuscular HGB Conc 34.8 % (30-36); Mean Corpuscular Hemoglobin 30.4 PG (26-34); Mean Corpuscular Volume 87.4 fL (80-100); Monocytes Absolute Auto 300 /uL (0-900); Monocytes Percent Auto 3.7 % (3-14); Neutrophils Absolute Auto 5800 /uL (1500-7000); Neutrophils Percent Auto 73.3 % (50-75); Platelet Count 336 X10^3/uL (150-400); Red Blood Cell Count 4.21 X10^6/uL (4.0-5.2); Red Cell Distribution Width 12.8 % (11.6-14.8)
[2022-05-03 11:25] LABS: Hepatitis B Surface Antigen NEGATIVE s/c (NEGATIVE)
[2022-05-03 11:42] LABS: HIV 1 & 2 Ab/Ag 4th Gen Combo NEGATIVE (NEGATIVE); Hep C Virus Ab w/Reflex Quant NEGATIVE s/c (NEGATIVE)
[2022-05-03 11:57] LABS: Rubella Antibody IgG 52.7 IU/mL (>15)
[2022-05-04 07:37] LABS: RPR Screen Non Reactive (Non Reactive)
[2022-05-04 09:08] LABS: Varicella IgG Antibody 1365 index (Immune >165)
== END ==
PROVIDERS: PCP Internal Medicine; Referring Provider Obstetrics & Gynecology; Visit Provider Obstetrics & Gynecology
DX: Z34.81 Encounter for supervision of other normal pregnancy, first trimester (principal)
CPT/HCPCS: 36415; 80055; 86787; 86803; 86850; 86900; 86901; 87389

== ENCOUNTER → 2022-06-04 08:14 | Outpatient (CLI) | payer OTHER, SELFPAY ==
[2022-06-04 13:40] LABS: Appearance Urine UA CLEAR; Bilirubin Urine UA NEGATIVE (NEGATIVE); Color Urine UA YELLOW; Glucose Urine UA NEGATIVE (Negative); Ketones Urine UA NEGATIVE (NEGATIVE); Leukocyte Esterase Urine UA NEGATIVE (NEGATIVE); Nitrite Urine UA NEGATIVE (Negative); Occult Blood Urine UA NEGATIVE (Negative); Protein Urine UA NEGATIVE (Negative); Specific Gravity Urine UA 1.015 (1.000-1.035); Urobilinogen Urine UA 0.2 E.U./dL (0.2)
[2022-06-04 13:52] LABS: pH Urine UA 7.5 (4.5-8.0)
== END ==
PROVIDERS: PCP Internal Medicine; Visit Provider Obstetrics & Gynecology
DX: Z34.81 Encounter for supervision of other normal pregnancy, first trimester (principal)
CPT/HCPCS: 81003; 87086

== ENCOUNTER → 2022-06-08 08:37 | Outpatient (CLI) | payer OTHER, SELFPAY ==
[2022-06-11 20:40] LABS: AFP Value 48.8 ng/mL (.); Gest Age on Col Date 16.4 weeks (.); Insulin Dep Diabetes No (.); OSBR Risk 1IN 9540 (.); Results Report (.); Test Results *Screen Negative* (.)
== END ==
PROVIDERS: PCP Internal Medicine; Referring Provider Obstetrics & Gynecology; Visit Provider Obstetrics & Gynecology
DX: Z34.82 Encounter for supervision of other normal pregnancy, second trimester (principal); Z3A.16 16 weeks gestation of pregnancy
CPT/HCPCS: 36415; 82105

== ENCOUNTER → 2022-07-09 10:43 | Outpatient (CLI) | payer OTHER, SELFPAY ==
--- NOTE | 2022-07-09 10:45 | DI.US.S_ITS ---
PROCEDURE: US OB >= 14 WEEKS FETUS INDICATIONS: ANATOMY OUTSIDE/PRIOR DATING DATA: Last menstrual period (LMP): 03/07/2022. LMP-based estimated date of delivery (TEAGAN): 11/28/2022. First dating scan (date and location): 04/18/2022 Estimated date of delivery (TEAGAN) from first dating scan: 11/24/2022. TECHNIQUE: Real-time scanning was performed of the fetus, with image documentation and biometric measurements. Endovaginal scanning: None COMPARISON: [facility], OB >= 14 WEEKS FETUS, 11/13/2018, 7:27. FINDINGS: General: A single living intrauterine gestation is present. Presentation: Vertex. Placenta: Placental position is anterior , without previa. Amniotic fluid index: 15.0 cm, normal range is 5-24 cm. Single deepest vertical pocket is 5.3 cm. heart rate: 155 beats per minute. Maternal cervical canal: 3.1 cm long. Normal lower limit is 2.5 cm. biometrics: Biparietal diameter: 4.5 cm, 19 week 4 day Head circumference: 16.7 cm, 19 week 2 day Abdominal circumference: 15.0 cm, 20 week 1 day Femur length: 3.2 cm, 20 week 0 day Clinically estimated gestational age: 19 week 5 day Composite gestational age from present scan: 19 week 5 day Estimated weight and percentile: 326 g, 60 second percentile Anatomic survey: Neuro: Ventricles are non-dilated at less than 10 mm. Cisterna magna is normal at 3-11 mm. Cerebellum is normal in size and morphology. Nuchal skin fold: Normal at less than 6 mm between 14-21 weeks gestational age. Face: Nose and lips, facial profile are normal. Spine: No evidence for spina bifida. Heart: 4-chambered heart is present, with normal ventricular outflow tracts. Diaphragm: Diaphragm is intact. Stomach: Left-sided stomach is present. Kidneys: No hydronephrosis. Normal is less than 5 mm in 2nd trimester, less than 7 mm in 3rd trimester. Cord: 3-vessel cord has orthotopic insertion. Bladder: Normal in size. Extremities: All 4 extremities identified. IMPRESSION: Single live intrauterine corresponds with a 19 week 5 day gestation Normal anatomy Approved by: Yunior Suh M.D. on 07/09/2022 at 14:46
== END ==
PROVIDERS: PCP Internal Medicine; Referring Provider Obstetrics & Gynecology; Visit Provider Obstetrics & Gynecology
DX: Z34.82 Encounter for supervision of other normal pregnancy, second trimester (principal); Z3A.20 20 weeks gestation of pregnancy
CPT/HCPCS: 76811

== ENCOUNTER 2022-08-18 21:22 | Outpatient (CLI) | payer OTHER, SELFPAY ==
--- NOTE | 2022-08-21 19:00 | P.TNLD_ITS ---
Visit Information Visit Information Date of evaluation: 08/18/22 Primary OB Provider: Vi Muhammad On-call OB Provider: Vi Muhammad Reason for Evaluation: Yes pre-term labor Comments/Additional reasons for admission: Pt is a 37 year old at 30 wks gestation who presents for c/o abdominal pain. No LOF/VB. Had been arguing with and started having pains. 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) Herpes (~2009) History of unexplained stillbirth (10/23/17) Post-viral cough syndrome contractions Prior with demise Vaginal delivery Surgical History (Updated 04/17/22 @ 13:36 by Tracy Monsivais RN) Anesthesia History of tonsillectomy (2003) Status post appendectomy (1998) [place] teeth extracted Social History marital status: number of children: 1 household members: spouse and children lives independently: Yes housing: house pets and animals: Yes (2 dogs) education level: college occupational status: previously employed current occupational exposures/hazards: No special otis needs: No travel history: over 6 months ago seatbelt use: always water heater temp set < 120 deg: Yes working smoke detector in home: Yes fire extinguisher in home: Yes carbon monox detector in home: Yes firearms in home: Yes firearms unloaded and locked: Yes do you feel safe at home: Yes Smoking Status: Never smoker second hand exposure: No alcohol intake: former substance use type: does not use during the past year weight has: remained stable well-balanced diet: daily or most days daily servings fruits/ve-4 caffeine: No (prior to , but hasn't liked the taste of coffee since ) Type(s) of exercise: walking Exam Narrative Exam Narrative: Generally: Moderated distress secondary to abdominal pain Evaluation Evaluation Baseline heart rate: 145 Variability: Moderate (11-25) monitor accelerations: Present Monitor Decelerations: Absent Contraction Frequency (minutes): 0 Category of Tracing: Reactive Diagnosis, Plan/Disposition Plan/Disposition Plan: Assessment: 37 year old at 30 wks gestation with abdominal pain No contractions on the monitor Plan: S/S labor reviewed OB Disposition: home
== END 2022-08-18 22:29 | disposition home or self-care (01) ==
LOC: OB 08-22 11:24
PROVIDERS: PCP Internal Medicine; Referring Provider Specialist; Visit Provider Specialist
DX: O47.02 False labor before 37 completed weeks of gestation, second trimester (principal); Z3A.25 25 weeks gestation of pregnancy
CPT/HCPCS: 59025; G0378; G0379

== ENCOUNTER → 2022-08-24 08:11 | Outpatient (CLI) | payer OTHER, SELFPAY ==
[2022-08-24 10:33] LABS: Hematocrit 33.6 % (36-46); Hemoglobin 11.6 g/dL (12.0-16.0)
[2022-08-24 10:52] LABS: GTT (PREG) 1 Hour PP 50gm Dose 144 mg/dL (76-139)
== END ==
PROVIDERS: PCP Internal Medicine; Referring Provider Specialist; Visit Provider Specialist
DX: Z34.82 Encounter for supervision of other normal pregnancy, second trimester (principal); Z3A.26 26 weeks gestation of pregnancy
CPT/HCPCS: 36415; 82950; 85014; 85018

== ENCOUNTER → 2022-08-29 07:52 | Outpatient (CLI) | payer OTHER, SELFPAY ==
[2022-08-29 10:42] LABS: Glucose 1 Hour Gest 160 mg/dL (76-180)
[2022-08-29 10:44] LABS: Glucose Fasting Gestational 71 mg/dL (76-95)
[2022-08-29 11:19] LABS: Glucose Tol Interp,Gestational INTERPRETATION
[2022-08-29 11:26] LABS: Glucose 2 Hour Gest 133 mg/dL (76-155)
[2022-08-29 13:11] LABS: Glucose 3 Hour Gest 116 mg/dL (76-140)
== END ==
PROVIDERS: PCP Internal Medicine; Referring Provider Obstetrics & Gynecology; Visit Provider Obstetrics & Gynecology
DX: O99.810 Abnormal glucose complicating pregnancy (principal)
CPT/HCPCS: 36415; 82951; 82952

== ENCOUNTER 2022-09-23 15:04 | Outpatient (CLI) | payer OTHER, SELFPAY ==
--- NOTE | 2022-09-23 17:11 | P.TNLD_ITS ---
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) Herpes (~2009) History of unexplained stillbirth (10/23/17) Post-viral cough syndrome contractions Prior with demise Vaginal delivery Surgical History (Updated 04/17/22 @ 13:36 by Tracy Monsivais, EMIL) Anesthesia History of tonsillectomy (2003) Status post appendectomy (1998) [place] teeth extracted Social History marital status: number of children: 1 household members: spouse and children lives independently: Yes housing: house pets and animals: Yes (2 dogs) education level: college occupational status: previously employed current occupational exposures/hazards: No special otis needs: No travel history: over 6 months ago seatbelt use: always water heater temp set < 120 deg: Yes working smoke detector in home: Yes fire extinguisher in home: Yes carbon monox detector in home: Yes firearms in home: Yes firearms unloaded and locked: Yes do you feel safe at home: Yes Smoking Status: Never smoker second hand exposure: No alcohol intake: former substance use type: does not use during the past year weight has: remained stable well-balanced diet: daily or most days daily servings fruits/ve-4 caffeine: No (prior to , but hasn't liked the taste of coffee since ) Type(s) of exercise: walking Evaluation Evaluation Baseline heart rate: 140 Variability: Moderate (11-25) monitor accelerations: Present Monitor Decelerations: Absent Category of Tracing: Reactive Diagnosis, Plan/Disposition Plan/Disposition Plan: Thirty weeks gestation History of demise at 36 weeks Reactive nonstress test OB Disposition: home
== END 2022-09-23 15:43 | disposition home or self-care (01) ==
LOC: OB 09-25 08:16
PROVIDERS: PCP Internal Medicine; Referring Provider Obstetrics & Gynecology; Visit Provider Obstetrics & Gynecology
DX: O09.293 Supervision of pregnancy with other poor reproductive or obstetric history, third trimester (principal); Z3A.36 36 weeks gestation of pregnancy
CPT/HCPCS: 59025; G0378; G0379

== ENCOUNTER 2022-10-01 10:08 | Observation (INO) | payer OTHER, SELFPAY ==
--- NOTE | 2022-10-01 10:37 | P.TNLD_ITS ---
Visit Information Visit Information Date of evaluation: 10/01/22 Primary OB Provider: Vi Muhammad On-call OB Provider: Taya Martínez Comments/Additional reasons for admission: Pt is a 37yo at 32w3d here for NST due to hx of full term demise. She is feeling her baby move regularly. No vaginal bleeding, LOF, contractions. 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) Herpes (~2009) History of unexplained stillbirth (10/23/17) Post-viral cough syndrome contractions Prior with demise Vaginal delivery Surgical History (Updated 04/17/22 @ 13:36 by Tracy Monsivais RN) Anesthesia History of tonsillectomy (2003) Status post appendectomy (1998) [place] teeth extracted Social History marital status: number of children: 1 household members: spouse and children lives independently: Yes housing: house pets and animals: Yes (2 dogs) education level: college occupational status: previously employed current occupational exposures/hazards: No special otis needs: No travel history: over 6 months ago seatbelt use: always water heater temp set < 120 deg: Yes working smoke detector in home: Yes fire extinguisher in home: Yes carbon monox detector in home: Yes firearms in home: Yes firearms unloaded and locked: Yes do you feel safe at home: Yes Smoking Status: Never smoker second hand exposure: No alcohol intake: former substance use type: does not use during the past year weight has: remained stable well-balanced diet: daily or most days daily servings fruits/ve-4 caffeine: No (prior to , but hasn't liked the taste of coffee since ) Type(s) of exercise: walking Evaluation Evaluation Baseline heart rate: 125 Variability: Moderate (11-25) monitor accelerations: Present Monitor Decelerations: Absent Category of Tracing: Reactive Diagnosis, Plan/Disposition Final Diagnosis (1) History of stillbirth: Status: Acute (2) 32 weeks gestation of : Status: Acute Plan/Disposition Plan: Pt is a 37yo at 32w3d here for NST due to hx of full term demise. NST reactive. Continue testing. OB Disposition: home
== END 2022-10-01 10:54 | disposition home or self-care (01) ==
LOC: LABOR 10:10
PROVIDERS: Admitting Provider Obstetrics & Gynecology; PCP Internal Medicine; Referring Provider Obstetrics & Gynecology; Visit Provider Obstetrics & Gynecology
DX: O09.293 Supervision of pregnancy with other poor reproductive or obstetric history, third trimester (principal); Z3A.32 32 weeks gestation of pregnancy
CPT/HCPCS: 59025; G0378; G0379

== ENCOUNTER 2022-10-07 15:11 | Outpatient (CLI) | payer OTHER, SELFPAY ==
--- NOTE | 2022-11-03 21:48 | PM.OBTRLD ---
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) Herpes (~2009) History of unexplained stillbirth (10/23/17) Post-viral cough syndrome contractions Prior with demise Vaginal delivery Surgical History (Updated 04/17/22 @ 13:36 by Tracy Monsivais RN) Anesthesia History of tonsillectomy (2003) Status post appendectomy (1998) [place] teeth extracted Social History marital status: number of children: 1 household members: spouse and children lives independently: Yes housing: house pets and animals: Yes (2 dogs) education level: college occupational status: previously employed current occupational exposures/hazards: No special otis needs: No travel history: over 6 months ago seatbelt use: always water heater temp set < 120 deg: Yes working smoke detector in home: Yes fire extinguisher in home: Yes carbon monox detector in home: Yes firearms in home: Yes firearms unloaded and locked: Yes do you feel safe at home: Yes Smoking Status: Never smoker second hand exposure: No alcohol intake: former substance use type: does not use during the past year weight has: remained stable well-balanced diet: daily or most days daily servings fruits/ve-4 caffeine: No (prior to , but hasn't liked the taste of coffee since ) Type(s) of exercise: walking Evaluation Evaluation Baseline heart rate: 135 Variability: Moderate (11-25) monitor accelerations: Present Monitor Decelerations: Absent Contraction Frequency (minutes): 0 Category of Tracing: Reactive Diagnosis, Plan/Disposition Plan/Disposition Plan: Assessment: 37-year-old 3 para 1101 at 33 weeks gestation History of a stillbirth at 36 weeks Reactive nonstress test Plan: Discharge to home kick counts Follow-up in 1 week for nonstress test OB Disposition: home
== END 2022-10-07 15:45 | disposition home or self-care (01) ==
LOC: OB 10-08 10:37
PROVIDERS: PCP Internal Medicine; Referring Provider Obstetrics & Gynecology; Visit Provider Obstetrics & Gynecology
DX: O09.293 Supervision of pregnancy with other poor reproductive or obstetric history, third trimester (principal); O09.523 Supervision of elderly multigravida, third trimester; O99.891 Other specified diseases and conditions complicating pregnancy; N89.3 Dysplasia of vagina, unspecified; Z3A.33 33 weeks gestation of pregnancy
CPT/HCPCS: 59025; 87480; 87510; 87660; G0378; G0379

== ENCOUNTER → 2022-10-07 15:39 | Outpatient (CLI) | payer OTHER, SELFPAY ==
[2022-10-09 05:27] LABS: Candida species Negative (Negative); Gardnerella vaginalis Negative (Negative); Trichomoas vaginalis Negative (Negative)
== END ==
PROVIDERS: PCP Internal Medicine; Visit Provider Obstetrics & Gynecology
DX: O99.891 Other specified diseases and conditions complicating pregnancy (principal); N89.8 Other specified noninflammatory disorders of vagina; Z3A.33 33 weeks gestation of pregnancy
CPT/HCPCS: 87480; 87510; 87660

== ENCOUNTER 2022-10-17 10:08 | Outpatient (CLI) | payer OTHER, SELFPAY | END 2022-10-17 11:01 | disposition home or self-care (01) | LOC: LABOR 11:17 → OB 10-24 12:26 | PROVIDERS: PCP Internal Medicine; Referring Provider Obstetrics & Gynecology; Visit Provider Obstetrics & Gynecology | DX: O09.523 Supervision of elderly multigravida, third trimester (principal); O09.293 Supervision of pregnancy with other poor reproductive or obstetric history, third trimester; O09.813 Supervision of pregnancy resulting from assisted reproductive technology, third trimester; Z3A.34 34 weeks gestation of pregnancy | CPT/HCPCS: 59025; G0378; G0379 ==

== ENCOUNTER 2022-11-01 17:26 | Outpatient (CLI) | payer OTHER, SELFPAY ==
--- NOTE | 2022-11-03 20:43 | PM.OBTRLD ---
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) Herpes (~2009) History of unexplained stillbirth (10/23/17) Post-viral cough syndrome contractions Prior with demise Vaginal delivery Surgical History (Updated 04/17/22 @ 13:36 by Tracy Monsivais RN) Anesthesia History of tonsillectomy (2003) Status post appendectomy (1998) [place] teeth extracted Social History marital status: number of children: 1 household members: spouse and children lives independently: Yes housing: house pets and animals: Yes (2 dogs) education level: college occupational status: previously employed current occupational exposures/hazards: No special otis needs: No travel history: over 6 months ago seatbelt use: always water heater temp set < 120 deg: Yes working smoke detector in home: Yes fire extinguisher in home: Yes carbon monox detector in home: Yes firearms in home: Yes firearms unloaded and locked: Yes do you feel safe at home: Yes Smoking Status: Never smoker second hand exposure: No alcohol intake: former substance use type: does not use during the past year weight has: remained stable well-balanced diet: daily or most days daily servings fruits/ve-4 caffeine: No (prior to , but hasn't liked the taste of coffee since ) Type(s) of exercise: walking Evaluation Evaluation Baseline heart rate: 130 Variability: Moderate (11-25) monitor accelerations: Present Monitor Decelerations: Absent Contraction Frequency (minutes): 6 Uterine Contraction Intensity: Mild Cervical dilation (cm): 3 Cervical effacement (%): 80 station: -1 Diagnosis, Plan/Disposition Plan/Disposition Plan: Assessment: 37-year-old 3 para 1101 at 36 and 6 weeks' gestation History of stillbirth at 36 weeks Reactive nonstress test Plan: Follow-up in 1 week kick counts discuss Signs and symptoms of labor discussed OB Disposition: home
== END 2022-11-01 18:02 | disposition home or self-care (01) ==
LOC: LABOR 17:34 → OB 11-04 15:42
PROVIDERS: PCP Internal Medicine; Referring Provider Obstetrics & Gynecology; Visit Provider Obstetrics & Gynecology
DX: O09.293 Supervision of pregnancy with other poor reproductive or obstetric history, third trimester (principal); Z3A.36 36 weeks gestation of pregnancy; Z34.83 Encounter for supervision of other normal pregnancy, third trimester
CPT/HCPCS: 59025; 87653; G0378; G0379

== ENCOUNTER → 2022-11-01 17:26 | Outpatient (CLI) | payer OTHER, SELFPAY ==
[2022-11-02 12:38] LABS: Strep Grp B PCR NEG for Grp B Strep
== END ==
PROVIDERS: PCP Internal Medicine; Visit Provider Obstetrics & Gynecology
DX: Z34.83 Encounter for supervision of other normal pregnancy, third trimester (principal); Z3A.36 36 weeks gestation of pregnancy
CPT/HCPCS: 87653

== ENCOUNTER 2022-11-07 13:42 | Outpatient (CLI) | payer OTHER, SELFPAY ==
--- NOTE | 2022-11-07 14:29 | P.TNLD_ITS ---
Visit Information Visit Information Date of evaluation: 11/07/22 Primary OB Provider: Vi Muhammad On-call OB Provider: Juliette Hope Reason for Evaluation: Yes non-stress test non-stress test reason: other (h/o stillbirth) Vital Signs Vital Signs: Temperature 36.1? blood pressure 127/79 heart rate 80 PFSH Medical History Acute blood loss anemia Female infertility associated with male factors (10/23/17) Herpes (~2009) History of unexplained stillbirth (10/23/17) Post-viral cough syndrome contractions Prior with demise Vaginal delivery Surgical History Anesthesia History of tonsillectomy (2003) Status post appendectomy (1998) [place] teeth extracted Social History marital status: number of children: 1 household members: spouse and children lives independently: Yes housing: house pets and animals: Yes (2 dogs) education level: college occupational status: previously employed current occupational exposures/hazards: No special otis needs: No travel history: over 6 months ago seatbelt use: always water heater temp set < 120 deg: Yes working smoke detector in home: Yes fire extinguisher in home: Yes carbon monox detector in home: Yes firearms in home: Yes firearms unloaded and locked: Yes do you feel safe at home: Yes Smoking Status: Never smoker second hand exposure: No alcohol intake: former substance use type: does not use during the past year weight has: remained stable well-balanced diet: daily or most days daily servings fruits/ve-4 caffeine: No (prior to , but hasn't liked the taste of coffee since ) Type(s) of exercise: walking Evaluation Evaluation Baseline heart rate: 130 Variability: Moderate (11-25) monitor accelerations: Present Monitor Decelerations: Absent Category of Tracing: Reactive Diagnosis, Plan/Disposition Final Diagnosis (1) 37 weeks gestation of : Status: Acute (2) History of stillbirth: Status: Acute (3) Advanced maternal age (AMA) in : Status: Acute Plan/Disposition Plan: 37 year old at 37+5 weeks with h/o stillbirth. NST reactive. Follow up as scheduled or return sooner if needed. OB Disposition: home
== END 2022-11-07 14:35 | disposition home or self-care (01) ==
LOC: LABOR 14:27 → OB 11-09 15:26
PROVIDERS: PCP Internal Medicine; Referring Provider Obstetrics & Gynecology; Visit Provider Obstetrics & Gynecology
DX: O09.293 Supervision of pregnancy with other poor reproductive or obstetric history, third trimester (principal); O09.523 Supervision of elderly multigravida, third trimester; Z3A.37 37 weeks gestation of pregnancy
CPT/HCPCS: 59025; G0378; G0379

== ENCOUNTER 2022-11-15 07:02 | Inpatient (IN) | payer OTHER, SELFPAY ==
[2022-11-15 08:02] VITALS: BP 119/74
[2022-11-15 08:08] LABS: Add Manual Diff / Slide Review NO; Basophils Absolute Auto 0 /uL (0-100); Basophils Percent Auto 0.4 % (0-2); Eosinophils Absolute Auto 100 /uL (0-450); Eosinophils Percent Auto 0.7 % (2-4); Hematocrit 35.4 % (36-46); Hemoglobin 12.4 g/dL (12.0-16.0); Lymphocytes Absolute Auto 1900 /uL (1100-4500); Lymphocytes Percent Auto 21.3 % (25-40); Mean Corpuscular Hemoglobin 31.9 PG (26-34); Mean Corpuscular Volume 90.9 fL (80-100); Monocytes Absolute Auto 400 /uL (0-900); Neutrophils Absolute Auto 6300 /uL (1500-7000); Neutrophils Percent Auto 72.6 % (50-75); Platelet Count 216 X10^3/uL (150-400); Red Cell Distribution Width 13.6 % (11.6-14.8); White Blood Cell Count 8.7 X10^3/uL (4.5-11.0)
[2022-11-15 08:28] LABS: COVID19 -Nasal RAPID Negative (Negative)
[2022-11-15] MEDS: LACTATED RINGERS 1,000 ML 100 ML IV ×2 (08:39→13:15)
[2022-11-15] MEDS: OXYTOCIN PREMIX 30 UNIT/500 ML PLAST..BAG IV (08:40)
--- NOTE | 2022-11-15 09:30 | P.HPOB_ITS ---
OB HPI Date/Time Date of admission: 11/15/22 Date Patient Seen: 11/15/22 Time Patient Seen: 09:31 History of Present Condition Chief complaint: INDUCTION TEAGAN Calculator Estimated Delivery Date Method Current WG Current Estimate 11/23/22 Ultrasound #1 38w 6d Other Estimates 11/22/22 Ultrasound #2 39w 0d 11/28/22 Conception 38w 1d Estimated Gestational Age (weeks): 39 : 3 Para: 2 care: good care, initiated at week #, number of visits (9) and pounds weight gain (24) Dating criteria OB: LMP confirmed by 1st trimester US Ultrasounds: normal 1st trimester US and normal mid trimester US Obstetrical complications: none Medical complications OB: none Indications Indication for induction OB: other (h/o stillbirth) Preadmission Labs Last OB Lab Results: Blood Type A Positive 11/15/22 07:40 Antibody Screen Negative 11/15/22 07:40 Hematocrit 35.4 % (36-46) L 11/15/22 07:40 Hemoglobin 12.4 g/dL (12.0-16.0) 11/15/22 07:40 Hepatitis B Surface Antigen Negative s/c (NEGATIVE) 05/03/22 09 :56 Hepatitis C Antibody Negative s/c (NEGATIVE) 05/03/22 09:56 Rubella Antibody 52.7 IU/mL (>15) 05/03/22 09:56 Varicella-Zoster IgG Antibody 1365 index (Immune >165) 05/03/22 09:56 Glucose 1 Hour 144 mg/dL (76-139) H 08/24/22 08:32 Group B Streptococcus (PCR) Neg for grp b strep 11/01/22 17:26 -: Chlamydia screen: negative, Gonorrhea screen: negative and Urine: negative -: PAP smear: Normal Genetic Screens: Cell-free DNA: Normal and Alpha-fetoprotein: Normal External Labs -: Urine: negative Prior (ies) Past Pregnancies Del. Date GA/Weeks Labor Lgth Wt Sex Route Outcome Anesthesia Place Delv Breastfeed Preg Comp Name 09/29/08 40 still IH 03/13/19 39 7 lb Male vaginal live - full term IH 2 year other Jus Delivery Date: 03/13/19 Last Updated by: Tracy Monsivais RN ctx -->modified bedrest 3rd trimester Evaluation Evaluation Baseline heart rate: 135 Variability: Moderate (11-25) monitor accelerations: Present Monitor Decelerations: Absent Contraction Frequency (minutes): 6 Uterine Contraction Intensity: Mild Dilation (cm): 3 Effacement (%): 80 station: -1 Position of cervix: mid Consistency: soft [facility] Medical History Acute blood loss anemia Female infertility associated with male factors (10/23/17) Herpes (~2009) History of unexplained stillbirth (10/23/17) Post-viral cough syndrome contractions Prior with demise Vaginal delivery Surgical History Anesthesia History of tonsillectomy (2003) Status post appendectomy (1998) [place] teeth extracted Social History marital status: number of children: 1 household members: spouse and children lives independently: Yes housing: house pets and animals: Yes (2 dogs) education level: college occupational status: previously employed current occupational exposures/hazards: No special otis needs: No travel history: over 6 months ago seatbelt use: always water heater temp set < 120 deg: Yes working smoke detector in home: Yes fire extinguisher in home: Yes carbon monox detector in home: Yes firearms in home: Yes firearms unloaded and locked: Yes do you feel safe at home: Yes Smoking Status: Never smoker second hand exposure: No alcohol intake: former substance use type: does not use during the past year weight has: remained stable well-balanced diet: daily or most days daily servings fruits/ve-4 caffeine: No (prior to , but hasn't liked the taste of coffee since ) Type(s) of exercise: walking Meds Home Medications and Allergies Home Medications Medication Instructions Recorded Confirmed Type cholecalciferol (vitamin D3) 25 25 mcg PO DAILY 04/17/22 11/15/22 History mcg (1,000 unit) capsule loratadine 10 mg tablet (Claritin) 10 mg PO DAILY 04/17/22 11/15/22 History prenat.vits,francia,gdo-[id number]-ibtnk 1 tab PO DAILY 04/17/22 11/15/22 History valacyclovir 500 mg tablet 500 mg PO BID PRN 04/17/22 11/15/22 History valacyclovir 1 gram tablet 1,000 mg PO DAILY #30 tabs 10/07/22 11/15/22 Rx (Valtrex) Allergies Allergy/AdvReac Type Severity Reaction Status Date / Time No Known Drug Allergies Allergy Verified 11/07/22 14:52 OB Exam Narrative Exam Narrative: Generally: Patient is sitting up in bed, no acute distress Lungs: Clear to auscultation bilaterally Cardiovascular: Regular rate and rhythm Fundal height: 38 cm Estimated weight: 7 lb Extremities: No edema Objective Labs Result Diagrams: 11/15/22 07:40 Labs: Laboratory Results - last 24 hr 11/15/22 11/15/22 11/15/22 07:40 07:40 07:40 WBC 8.7 RBC 3.90 L Hgb 12.4 Hct 35.4 L MCV 90.9 MCH 31.9 MCHC 35.0 RDW 13.6 Plt Count 216 Neut % (Auto) 72.6 Lymph % (Auto) 21.3 L Sunflower % (Auto) 5.0 Eos % (Auto) 0.7 L Baso % (Auto) 0.4 Neut # (Auto) 6300 Lymph # (Auto) 1900 Sunflower # (Auto) 400 Eos # (Auto) 100 Baso # (Auto) 0 SARS-CoV-2 (PCR) Negative Blood Type A Positive Antibody Screen Negative Assessment and Plan Assessment and Plan Assessment and Plan narrative: Assessment: 37-year-old 3 para 2 at an estimated gestational age of 39 weeks History of stillbirth GBS negative Plan: Pitocin per protocol 1 Epidural as necessary Expected management to spontaneous vaginal delivery Time Spent with Patient Total time spent with greater than 50% in coordination of care (as documented) at patient's floor/unit and/or counseling patient:: 15-24 minutes
[2022-11-15] MEDS: FENT 2MCG/ML BUPIV 0.125% EPI 200 MCG/100 ML PLAST..BAG 6 MCG EPIDURAL (13:15)
--- NOTE | 2022-11-15 16:07 | PM.OBPNLAB ---
Date/Time Date Patient Seen: 11/15/22 Time Patient Seen: 11:00 Pain Control Pain control: tolerating well Pelvic Exam Dilation (cm): 3 Effacement (%): 80 station: -1 Amniotic membrane status: Intact Contractions Contractions on admission: none Monitor mode: External Pitocin rate (mU/min): 4 Contraction frequency (min): 3 Contraction duration (min): 1 Contraction pattern: Regular Contraction intensity: Moderate Status status: Category l Heart Rate Baseline: 135 Monitor Accelerations: Present Monitor Decelerations: Absent Monitor Variability: Moderate Assessment and Plan Assessment: induction ongoing Comments: AROM with copious clear amniotic fluid
--- NOTE | 2022-11-15 17:08 | PM.OBPRVD ---
Events: Labor Induction Labor & Delivery Delivery date: 11/15/22 Intrapartal Events: None Cervical ripening method: none Induction method: per pitocin protocol Delivery augmentation: rupture of membranes Delivery monitor: external FHT and external uterine Route of delivery: Episiotomy description: None L&D Laceration Description: None Quantitative Blood Loss: 420 Anesthesia Type: Epidural Complications: None Narrative: Patient complete and pushed for 20 minutes. At 3:43 p.m., a live female delivered spontaneously in the ANTONINO presentation, over an intact perineum. No nuchal cord. There was a compound presentation with the baby's right arm. The remainder of the body delivered without difficulty and was placed on mom's abdomen. Patient had a gush of blood after several minutes. The cord was double clamped and cut. Cord bloods were obtained. Pitocin was given in the IV fluids. The placenta delivered intact with a three-vessel cord at 3:48 p.m.. The fundus was massaged to firm. Apgars 9 at 1 minute and 9 at 5 minutes. Epidural analgesia. No lacerations. Mom and stable to recovery. Baby 1: Infant gender: Female Presentation: vertex Position: Right Occiput Anterior Placenta delivery description: Spontaneous Cord Vessel Description: 3 Vessels score (1 min): 9 score (5 min): 9 weight: 6 lb 8 oz Plan for aftercare: Routine care
[2022-11-15] MEDS: ACETAMINOPHEN 325 MG TABLET 650 MG PO (17:37)
[2022-11-15] MEDS: IBUPROFEN 600 MG TABLET PO (17:38)
[2022-11-16] MEDS: IBUPROFEN 600 MG TABLET PO ×3 (00:15→13:42)
[2022-11-16] MEDS: ACETAMINOPHEN 325 MG TABLET 650 MG PO ×3 (00:16→13:42)
[2022-11-16 06:09] LABS: Hemoglobin 8.9 g/dL (12.0-16.0)
[2022-11-16] MEDS: DOCUSATE 100 MG CAPSULE PO (10:45)
[2022-11-16 11:51] VITALS: BP 120/69; PULSE 79; RESP 16; TEMP 37.8
== END 2022-11-16 15:00 | disposition home or self-care (01) | DRG 807 ==
PROVIDERS: Admitting Provider Obstetrics & Gynecology; PCP Internal Medicine; Referring Provider Obstetrics & Gynecology; Visit Provider Obstetrics & Gynecology
DX: O98.52 Other viral diseases complicating childbirth (principal); Z37.0 Single live birth; B00.9 Herpesviral infection, unspecified; Z3A.38 38 weeks gestation of pregnancy; Z20.822 Contact with and (suspected) exposure to COVID-19
CPT/HCPCS: 36415; 59050; 59400; 85014; 85018; 85025; 86850; 86900; 86901; 87635; C9803; G0379; J2590

== ENCOUNTER → 2022-12-30 15:08 | Outpatient (CLI) | payer OTHER, SELFPAY ==
[2023-01-01 12:11] LABS: Candida species Negative (Negative); Gardnerella vaginalis Negative (Negative); Trichomoas vaginalis Negative (Negative)
== END ==
PROVIDERS: PCP Internal Medicine; Visit Provider Physician Assistant Medical
DX: N89.8 Other specified noninflammatory disorders of vagina (principal)
CPT/HCPCS: 87480; 87510; 87660